=== PATIENT | female | born 1990 | race Caucasian/White ===

== ENCOUNTER 2023-01-09 06:15 | Day surgery (SDC) | payer OTHER ==
[~2023-01-09] VITALS: Ht 172.7 cm; Wt 90.6 kg
[~2023-01-09 06:15] MED LIST: AMPH1CAP16 PO; AMPH1TAB2 PO; TRAZ-257 PO
[2023-01-09 07:01] LABS: HEMATOCRIT 40.1 % (36.0-47.0); HEMOGLOBIN 13.3 g/dl (12.0-15.5)
[2023-01-09] MEDS ORDERED: BUPIVACAINE HCL 0.25% 30ML VIAL As Ordered ONE (07:09)
[2023-01-09 07:16] LABS: HCG, SERUM QUALITATIVE NEGATIVE (NEGATIVE)
[2023-01-09] MEDS ORDERED: propofoL 200 MG/20 ML VIAL As Ordered ONE (07:46)
[2023-01-09] MEDS ORDERED: MIDAZOLAM INJ 2MG/2ML VIAL As Ordered ONE (07:46)
[2023-01-09] MEDS ORDERED: ONDANSETRON 4MG 2ML VIAL As Ordered ONE (07:46)
[2023-01-09] MEDS ORDERED: fentaNYL 100 MCG/2 ML INJECTION As Ordered ONE (07:46)
[2023-01-09] MEDS ORDERED: LIDOCAINE 2% 100MG/5ML SDV (FOR ANES.) As Ordered ONE (07:46)
[2023-01-09] MEDS ORDERED: ACETAMINOPHEN 1000MG 100ML IV BAG As Ordered ONE (07:56)
[2023-01-09] MEDS ORDERED: METOCLOPRAMIDE INJ 10MG/2ML VIAL IV PRN (08:30)
[2023-01-09] MEDS ORDERED: LR 1,000 ML IV SCH (08:30)
[2023-01-09] MEDS ORDERED: oxyCODONE 5MG TAB PO PRN (08:30)
[2023-01-09] MEDS ORDERED: fentaNYL 100 MCG/2 ML INJECTION IV PRN (08:30)
[2023-01-09] MEDS ORDERED: MEPERIDINE 25 MG/ML 1ML VIAL IV PRN (08:30)
[2023-01-09] MEDS ORDERED: ONDANSETRON 4MG 2ML VIAL IV PRN (08:30)
[2023-01-09] MEDS ORDERED: KETOROLAC 30 MG/ML 1ML VIAL IV ONE (08:50)
[2023-01-09] MEDS ORDERED: oxyCODONE 5MG TAB PO ONE (08:50)
[2023-01-09 09:20] VITALS: BP 136/79
== END 2023-01-09 09:26 | disposition home or self-care (01) ==
LOC: M SDC 06:15
PROVIDERS: ATTEND Obstetrics & Gynecology
DX: N90.60 Unspecified hypertrophy of vulva (principal); R10.2 Pelvic and perineal pain; F90.9 Attention-deficit hyperactivity disorder, unspecified type; L30.9 Dermatitis, unspecified; Z79.899 Other long term (current) drug therapy
CPT/HCPCS: 36415; 56620; 84703; 85014; 85018; 86850; 86900; 86901; 88302; J0131; J1100; J2250; J2405; J3010; S0020